=== PATIENT | female | born 1980 | race Caucasian/White ===

== ENCOUNTER → 2016-09-13 | Outpatient (REF) | payer BC | LOC: M LAB REF 16:42 | DX: J02.0 Streptococcal pharyngitis (principal) ==

== ENCOUNTER 2023-11-09 23:40 | Emergency (ER) | payer BC ==
[~2023-11-09] VITALS: Ht 175.3 cm; Wt 110.9 kg
[2023-11-10 00:59] LABS: BASO # 0.1 10^3/uL (0.0-0.2); BASO % 0.6 % (0.0-1.0); EOS # 0.2 10^3/uL (0.0-0.5); EOS % 1.9 % (0.0-3.0); HEMATOCRIT 40.6 % (36.0-47.0); HEMOGLOBIN 14.2 g/dl (12.0-15.5); LYMPH # 1.6 10^3/uL (1.5-5.0); LYMPH % 16.2 % (24.0-44.0); MEAN CORPUSCULAR HEMOGLOBIN 32.3 pg (27.0-33.0); MEAN CORPUSCULAR VOLUME 92.3 fl (80.0-96.0); MONO # 0.8 10^3/uL (0.0-0.8); MONO % 7.6 % (2.0-8.0); NEUTROPHILS # 7.3 10^3/uL (1.5-8.5); NEUTROPHILS % 73.4 % (36.0-66.0); PLATELET COUNT, AUTOMATED 246 10^3/uL (150-450); WHITE BLOOD COUNT 9.9 10^3/uL (4.0-10.0)
[2023-11-10 02:37] VITALS: BP 137/73; TEMP 97.6; O2SAT 99
== END 2023-11-10 02:38 | disposition home or self-care (01) ==
LOC: M ED 23:40
DX: K42.9 Umbilical hernia without obstruction or gangrene (principal)

== ENCOUNTER 2024-04-10 10:26 | Day surgery (SDC) | payer BC ==
[~2024-04-10] VITALS: Ht 175.3 cm; Wt 115.9 kg
[~2024-04-10 10:26] MED LIST: ACETAMINOPHEN 1000MG/100ML IV BAG As Ordered ONE; GLYCOPYRROLATE INJ 0.2 MG/ML 2 ML VIAL As Ordered ONE; HYDR-3490 PO; KETOROLAC 60MG 2ML VIAL As Ordered ONE; LABE100T6 PO; LIDOCAINE 2% 100MG/5ML SDV (FOR ANES.) As Ordered ONE; LISI10TA22 PO; LR 1,000 ML IV SCH; MIDAZOLAM INJ 2MG/2ML VIAL As Ordered ONE; MULTTAB86 PO; NASA1SPR NARES; ONDANSETRON 4MG 2ML VIAL As Ordered ONE; ROCURONIUM BROMIDE 50MG/5ML VIAL As Ordered ONE; SUGAMMADEX SODIUM 500 MG/5 ML VIAL (BRIDION) As Ordered ONE; SUPE5000 PO; SUPETAB44 PO; fentaNYL 100 MCG/2 ML INJECTION As Ordered ONE; propofoL 200 MG/20 ML VIAL As Ordered ONE
[2024-04-10] MEDS: ceFAZolin SOD 2 GM in IV 1 EA IV ONE (11:49)
[2024-04-10] MEDS: HEPARIN SOD (PORCINE) 5000UNITS/ML 1ML VIAL/SYRINGE SQ ONE (12:00)
[2024-04-10] MEDS ORDERED: oxyCODONE 5MG TAB PO PRN (13:40)
[2024-04-10] MEDS ORDERED: fentaNYL 100 MCG/2 ML INJECTION IV PRN (13:40)
[2024-04-10] MEDS: NS 1,000 ML IV SCH (13:40)
[2024-04-10] MEDS ORDERED: HYDROMORPHONE HCL 0.5 MG/ 0.5 ML SYRINGE IV PRN (13:40)
[2024-04-10] MEDS: ONDANSETRON 4MG 2ML VIAL IV PRN (14:06)
[2024-04-10] MEDS: METOCLOPRAMIDE INJ 10MG/2ML VIAL IV ONE (14:25)
[2024-04-10 15:20] VITALS: BP 124/69; TEMP 97; O2SAT 98
== END 2024-04-10 16:00 | disposition home or self-care (01) ==
LOC: M SDC 10:26
PROVIDERS: ATTEND Surgery
DX: K42.0 Umbilical hernia with obstruction, without gangrene (principal); I10 Essential (primary) hypertension; G47.30 Sleep apnea, unspecified; Z79.899 Other long term (current) drug therapy; Z90.49 Acquired absence of other specified parts of digestive tract
CPT/HCPCS: 49592; 81025; C1781; C9290; J0131; J0665; J0690; J1100; J1596; J1885; J2250; J2405; J2765; J3010